=== PATIENT | female | born 1985 | race Caucasian/White ===

== ENCOUNTER 2018-04-23 13:48 | Emergency (ER) | payer BC ==
[2018-04-23 14:42] VITALS: BP 97/74
--- NOTE | 2018-04-23 14:50 | UC ---
Lower Extremity/Ankle HPI - HPI Summary HPI Summary: C/O a splinter in the right foot. Unable to remove. Needs Tetanus update. - History of Current Complaint Chief Complaint: UCLowerExtremity Stated Complaint: RIGHT FOOT COMP Time Seen by Provider: 04/23/18 14:42 Hx Obtained From: Patient Hx Last Menstrual Period: 04/14/18 ?: No Onset/Duration: Sudden Onset, Lasting Hours - 1, Still Present - boyfriend unable to remove splinter Severity Initially: Moderate Severity Currently: Moderate Pain Intensity: 8 Aggravating Factor(s): Standing, Ambulation Alleviating Factor(s): Rest, Elevation Able to Bear Weight: Yes - Allergies/Home Medications Allergies/Adverse Reactions: Allergies Allergy/AdvReac Type Severity Reaction Status Date / Time No Known Allergies Allergy Verified 04/23/18 14:35 Home Medications: Home Medications Albuterol HFA INHALER* [Ventolin HFA Inhaler*] 1 puff Q6HR PRN 04/23/18 [ History Confirmed 04/23/18] Fluticasone-Salmeterol 250-50* [Advair Diskus 250-50*] 1 puff DAILY 04/23/18 [ History Confirmed 04/23/18] PMH/Surg Hx/FS Hx/Imm Hx Respiratory History: Asthma - Surgical History Surgical History: None - Family History Known Family History: Positive: Hypertension - Social History Occupation: Employed Full-time Lives: With Family Alcohol Use: Occasionally Substance Use Type: None Smoking Status (MU): Never Smoked Tobacco - Immunization History Most Recent Influenza Vaccination: unknown Most Recent Tetanus Shot: unknown Most Recent Pneumonia Vaccination: never Review of Systems Skin: Other - Splinter right foot Is Patient Immunocompromised?: No All Other Systems Reviewed And Are Negative: Yes Physical Exam Triage Information Reviewed: Yes Appearance: Well-Appearing, Well-Nourished, Pain Distress - only with movement, manipulation of the foot Vital Signs: Initial Vital Signs Temp 98.5 F 04/23/18 14:36 Pulse 78 04/23/18 14:36 Resp 16 04/23/18 14:36 BP 97/74 04/23/18 14:36 Pulse Ox 100 04/23/18 14:36 Vital Signs Reviewed: Yes Eyes: Positive: Conjunctiva Clear Neck exam: Normal Respiratory Exam: Normal Cardiovascular Exam: Normal Musculoskeletal Exam: Normal Neurological Exam: Normal Psychological Exam: Normal Skin: Positive: Other - Splinter right foot Procedures - Procedure Summary Procedure Summary: Removal splinter FB right foot. Time out. Local 2.5cc 2% xylo with epi. Betadine prep. Incision made along both sides of the splinter to get it to release and it was removed intact. Antibiotic ointment/ bandaid applied. Patient tolerated the procedure well. Lower Extremity Course/Dx - Differential Dx/Diagnosis Differential Diagnosis/HQI/PQRI: Cellulitis, Contusion, Foreign Body Provider Diagnoses: Foreign body right foot, wooden splinter. Complicated removal Discharge - Sign-Out/Discharge Documenting (check all that apply): Discharge/Admit/Transfer - Discharge Plan Condition: Stable Disposition: HOME Prescriptions: Cephalexin CAP* [Keflex 500 CAP*] 500 mg PO QID #12 cap Patient Education Materials: Soft Tissue Foreign Body (ED), Diphtheria/ Acellular Pertussis/Tetanus Vaccine (By injection), Cephalexin (By mouth) Referrals: Krystyna Rutherford DO [Primary Care Provider] - Additional Instructions: Use antibiotic ointment and a bandaid over the wound. Change it twice a day until it is healed. - Billing Disposition and Condition Condition: STABLE Disposition: Home Images Feet (Multiple View): 1 - Splinter entry wound distal and track up the foot.
[2018-04-23] MEDS ORDERED: Lidocaine 2% W/EPI 1:100,000* 20 ML MDV INJ ONE (14:53)
[2018-04-23] MEDS ORDERED: Tetan/Diph/Pertus SYR(Tdap)* 0.5 ML SYR(BOOSTRIX) use SYR IM ONE (15:22)
== END 2018-04-23 15:46 | disposition home or self-care (01) ==
LOC: UCCORT 13:48
DX: S90.851A Superficial foreign body, right foot, initial encounter (principal); W45.8XXA Other foreign body or object entering through skin, initial encounter; Y93.9 Activity, unspecified; Y92.9 Unspecified place or not applicable
CPT/HCPCS: 28190; 90471; 90715; 99212; G0463

== ENCOUNTER → 2018-12-01 09:55 | Day surgery (SDC) | payer BC ==
[~2018-12-01 09:55] MED LIST: Bacitracin OINTMENT* 0.5% 0.5 oz TUBE ONE; Buffered Lidocaine 1% SYRIN* 1 ML/SYRINGE INTRADERM ONE; Dexamethasone IV* 4 MG/ML 1 ML (4 MG) IV SLOW PU ONE; Dexamethasone IV* 4 MG/ML 1 ML (4 MG) ONE; DiMENhydriNATE IV* 50 MG/ML VIAL IV PUSH PRN; Famotidine IV* 10 MG/ML 2 ML (20 mg) IV ONE; Famotidine IV* 10 MG/ML 2 ML (20 mg) ONE; Lactated Ringers 1000 ML Bag* 1,000 ML IV SCH; Levalbuterol 0.63MG/3ML NEB* UNIT OF USE INH ONE; Lidocain 1% EPI 1:100,000 * 30 ML MDV ONE; Lidocaine 2% PF * 5 ML VIAL ONE; Lidocaine 4% TOPICAL* 50 ML TOP.SOLN ONE; Midazolam* 1 MG/ML 5 ML VIAL (5 MG) ONE; Morphine VIAL* 4 MG/ML VIAL (1 ml vial) IV PRN; Naloxone* 0.4 MG/ML 1 ML VIAL IV PRN; Ondansetron ODT TAB* 4 MG ONE; Ondansetron TAB* 4 MG PO ONE; Oxymetazoline 0.05% NASAL SPR* 15 ML BTL ONE; PROCHLORPERAZINE INJ 5 MG/ML 2 ML VIAL IV PRN; Propofol* 10 MG/ML 20 ML BTL ONE; fentaNYL* 50 MCG/ML 2 ML VIAL (100 MCG VIAL) IV PRN; fentaNYL* 50 MCG/ML 2 ML VIAL (100 MCG VIAL) ONE; oxyCODONE/Acetamin 5/325 MG* TAB PO PRN
[2018-12-01 13:54] VITALS: BP 115/65
--- NOTE | 2018-12-01 14:52 | OP ---
DATE OF OPERATION: 12/01/18 - SDS DATE OF : 89 SURGEON: Paddy Anderson MD ANESTHESIA: Laryngeal mask airway anesthesia. PRE-OP DIAGNOSES: Chronic recurrent maxillary ethmoidal sinusitis with nasal polyposis. POST-OP DIAGNOSES: Chronic recurrent maxillary ethmoidal sinusitis with nasal polyposis. OPERATIVE PROCEDURE: Bilateral endoscopic sinus surgery with anterior and posterior ethmoidectomies, maxillary antrostomy, and debridement of polyps under general laryngeal mask airway anesthesia. This was done with image guidance. COMPLICATIONS: None. SPECIMENS: Left and right sinus contents with polyps. DESCRIPTION OF PROCEDURE: The patient was taken to the operating room, placed in a supine position on the operating room table, maintained with laryngeal mask airway anesthesia. She was registered to the [employer] image guided system. Her nose was packed bilaterally with cottonoids impregnated with oxymetazoline and 4% lidocaine. There were removed. She has had previous endoscopic sinus surgery but has recurrence of her polyps and what I did notice was that the uncinate processes have not been fully taken down and she still had some intact ethmoidal air cells. These areas were injected with 1% lidocaine with 1:100,000 epinephrine. were used to debride the polyps. The polyps were removed from maxillary sinus. The uncinate processes were taken down. The debrider was used to debride some of the polyps in this area. The anterior and posterior air cells that had not previously been opened were opened with curette and the polyps were removed. A Stammberger Sinu- Foam was placed. The patient tolerated the procedure well. There were no complications and transferred to the recovery room in stable condition. [id number] #: [id number]
== END | disposition home or self-care (01) ==
LOC: OR 09:55
PROVIDERS: ATTEND Otolaryngology
DX: J32.4 Chronic pansinusitis (principal); J33.8 Other polyp of sinus; J45.40 Moderate persistent asthma, uncomplicated; H72.2X2 Other marginal perforations of tympanic membrane, left ear; H74.02 Tympanosclerosis, left ear; H90.0 Conductive hearing loss, bilateral; Z87.891 Personal history of nicotine dependence
CPT/HCPCS: 81025; 88304; A9270-GY; J1100; J2250; J2704; J3010